=== PATIENT | female | born 1985 | race African-American/Black ===

== ENCOUNTER 2018-08-09 09:45 | Emergency (ER) | payer OTHER ==
[~2018-08-09] VITALS: Ht 175.3 cm; Wt 112.5 kg
[~2018-08-09 09:45] MED LIST: IBUP-1060 PO; PRED50TA PO
[2018-08-09 12:07] LABS: BILIRUBIN,URINE NEGATIVE (NEG); CLARITY,URINE CLEAR; COLOR,URINE YELLOW; NITRITE,URINE NEGATIVE (NEG); PH,URINE 5.5; PROTEIN,URINE NEGATIVE (NEG-TRACE); UROBILINOGEN,URINE 0.2 mg/dL (0.2 mg/dL)
[2018-08-09 12:12] LABS: SQUAMOUS EPITHELIAL CELL,UR MOD /LPF
[2018-08-09 12:13] LABS: BACTERIA,URINE FEW /HPF (0-FEW); RBC,URINE 0 /HPF (0-2)
[2018-08-09] MEDS: DICYCLOMINE HCL 10 MG CAPSULE PO ONE (12:24)
[2018-08-09] MEDS: IV NORMAL SALINE 1000ML BAG 1,000 ML IV ONE (12:24)
[2018-08-09] MEDS: FAMOTIDINE 20 MG/2 ML VIAL IVP ONE (12:24)
[2018-08-09] MEDS: ONDANSETRON PF 4 MG/2 ML VIAL. IV ONE (12:24)
[2018-08-09 12:29] LABS: BASO % 1 % (0-3); EOS # 0.1 x10^3/uL (0.0-0.7); EOS % 3 % (0-3); HEMATOCRIT 39.3 % (36.0-47.0); HEMOGLOBIN 13.3 g/dL (12.0-15.5); LYMPH # 1.4 x10^3/uL (1.0-4.8); LYMPH % 30 % (24-48); MEAN CORPUSCULAR HEMOGLOBIN 28 pg (25-35); MEAN CORPUSCULAR HGB CONC 34 g/dL (31-37); MEAN CORPUSCULAR VOLUME 82 fL (79-100); MONO # 0.4 x10^3/uL (0.0-1.1); MONO % 8 % (0-9); NEUT # 2.7 x10^3uL (1.8-7.7); NEUT % 59 % (31-73); PLATELET COUNT 239 x10^3/uL (140-400); RED BLOOD COUNT 4.82 x10^6/uL (3.50-5.40); RED CELL DISTRIBUTION WIDTH 13.9 % (11.5-14.5); WHITE BLOOD COUNT 4.5 x10^3/uL (4.0-11.0)
[2018-08-09 12:39] LABS: CALCIUM 9.1 mg/dL (8.5-10.1); CREATININE 0.7 mg/dL (0.6-1.0); GFR 117.3; POTASSIUM 3.8 mmol/L (3.5-5.1)
[2018-08-09 12:46] LABS: ALBUMIN 3.6 g/dL (3.4-5.0); TOTAL BILIRUBIN 0.5 mg/dL (0.2-1.0); TOTAL PROTEIN 7.3 g/dL (6.4-8.2)
[2018-08-09 12:58] LABS: INFLUENZA A PATIENT NEGATIVE (NEGATIVE); INFLUENZA B PATIENT NEGATIVE (NEGATIVE)
[2018-08-09] MEDS ORDERED: DICY20TA3 PO (14:06)
[2018-08-09] MEDS ORDERED: ONDA4TAB7 PO (14:06)
--- NOTE | 2018-08-09 14:06 | PHYS DOC ---
Past Medical History Past Medical History: No Pertinent History Past Surgical History: , Tubal ligation Additional Past Surgical Histo: lumpectomy Alcohol Use: None Drug Use: None Adult General Chief Complaint Chief Complaint: NAUSEA/VOMITING/DIARRHA HPI HPI Patient is a 33 year old female with no significant medical history who presents today with nausea, vomiting, diarrhea, generalized abdominal pain described as mild and intermittent, and a fever intermittently for 3 days. Patient denies any chance she is . She states her tubes are tied. Denies any hematemesis or melena. Review of Systems Review of Systems Constitutional: Denies fever or chills [] Eyes: Denies change in visual acuity, redness, or eye pain [] HENT: Denies nasal congestion or sore throat [] Respiratory: Denies cough or shortness of breath [] Cardiovascular: No additional information not addressed in HPI [] GI: Reports abdominal pain, nausea, vomiting, diarrhea : Denies dysuria or hematuria [] Musculoskeletal: Denies back pain or joint pain [] Integument: Denies rash or skin lesions [] Neurologic: Denies headache, focal weakness or sensory changes [] All other systems were reviewed and found to be within normal limits, except as documented in this note. Current Medications Current Medications Current Medications Medications (Trade) Dose Ordered Sig/Liv Start Time Stop Time Status Last Admin Dose Admin Dicyclomine HCl (Bentyl) 20 mg 1X ONCE 08/09/18 12:00 08/09/18 12:01 DC 08/09/18 12:24 20 MG Famotidine (Pepcid Vial) 20 mg 1X ONCE 08/09/18 12:00 08/09/18 12:01 DC 08/09/18 12:24 20 MG Ondansetron HCl (Zofran) 4 mg 1X ONCE 08/09/18 12:00 08/09/18 12:01 DC 08/09/18 12:24 4 MG Sodium Chloride 1,000 ml @ 1,000 mls/hr 1X ONCE 08/09/18 12:00 08/09/18 12:59 DC 08/09/18 12:24 1,000 MLS/HR Allergies Allergies Allergies Coded Allergies Type Severity Reaction Last Updated Verified No Known Drug Allergies 07/17/13 No Physical Exam Physical Exam Constitutional: Well developed, well nourished, no acute distress, non-toxic appearance. [] HENT: Normocephalic, atraumatic, bilateral external ears normal, oropharynx moist, no oral exudates, nose normal. [] Eyes: PERRLA, EOMI, conjunctiva normal, no discharge. [] Neck: Normal range of motion, no tenderness, supple, no stridor. [] Cardiovascular:Heart rate regular rhythm, no murmur [] Lungs & Thorax: Bilateral breath sounds clear to auscultation [] Abdomen: Rounded abdomen. Bowel sounds normal, soft, no tenderness, no masses, no pulsatile masses. [] Skin: Warm, dry, no erythema, no rash. [] Back: No tenderness, no CVA tenderness. [] Extremities: No tenderness, no cyanosis, no clubbing, ROM intact, no edema. [] Neurologic: Alert and oriented X 3, normal motor function, normal sensory function, no focal deficits noted. [] Psychologic: Affect normal, judgement normal, mood normal. [] Current Patient Data Vital Signs Vital Signs Date Time Temp Pulse Resp B/P (MAP) Pulse Ox O2 Delivery O2 Flow Rate FiO2 08/09/18 09:50 98.1 86 16 125/67 (86) 97 Room Air 98.1 Lab Values Laboratory Tests Test 08/09/18 10:17 08/09/18 11:46 08/09/18 12:10 08/09/18 12:25 Urine Collection Type Unknown Urine Color Yellow Urine Clarity Clear Urine pH 5.5 Urine Specific [place] 1.025 Urine Protein Negative mg/dL (NEG-TRACE) Urine Glucose (UA) Negative mg/dL (NEG) Urine Ketones (Stick) Negative mg/dL (NEG) Urine Blood Negative (NEG) Urine Nitrite Negative (NEG) Urine Bilirubin Negative (NEG) Urine Urobilinogen Dipstick 0.2 mg/dL (0.2 mg/dL) Urine Leukocyte Esterase Negative (NEG) Urine RBC 0 /HPF (0-2) Urine WBC 1-4 /HPF (0-4) Urine Squamous Epithelial Cells Mod /LPF Urine Bacteria Few /HPF (0-FEW) Urine Mucus Marked /LPF POC Urine HCG, Qualitative Hcg negative (Negative) White Blood Count 4.5 x10^3/uL (4.0-11.0) Red Blood Count 4.82 x10^6/uL (3.50-5.40) Hemoglobin 13.3 g/dL (12.0-15.5) Hematocrit 39.3 % (36.0-47.0) Mean Corpuscular Volume 82 fL (79-100) Mean Corpuscular Hemoglobin 28 pg (25-35) Mean Corpuscular Hemoglobin Concent 34 g/dL (31-37) Red Cell Distribution Width 13.9 % (11.5-14.5) Platelet Count 239 x10^3/uL (140-400) Neutrophils (%) (Auto) 59 % (31-73) Lymphocytes (%) (Auto) 30 % (24-48) Monocytes (%) (Auto) 8 % (0-9) Eosinophils (%) (Auto) 3 % (0-3) Basophils (%) (Auto) 1 % (0-3) Neutrophils # (Auto) 2.7 x10^3uL (1.8-7.7) Lymphocytes # (Auto) 1.4 x10^3/uL (1.0-4.8) Monocytes # (Auto) 0.4 x10^3/uL (0.0-1.1) Eosinophils # (Auto) 0.1 x10^3/uL (0.0-0.7) Basophils # (Auto) 0.0 x10^3/uL (0.0-0.2) Sodium Level 138 mmol/L (136-145) Potassium Level 3.8 mmol/L (3.5-5.1) Chloride Level 103 mmol/L (98-107) Carbon Dioxide Level 28 mmol/L (21-32) Anion Gap 7 (6-14) Blood Urea Nitrogen 10 mg/dL (7-20) Creatinine 0.7 mg/dL (0.6-1.0) Estimated GFR (Cockcroft-Gault) 117.3 BUN/Creatinine Ratio 14 (6-20) Glucose Level 85 mg/dL (70-99) Calcium Level 9.1 mg/dL (8.5-10.1) Total Bilirubin 0.5 mg/dL (0.2-1.0) Aspartate Amino Transferase (AST) 25 U/L (15-37) Alanine Aminotransferase (ALT) 30 U/L (14-59) Alkaline Phosphatase 75 U/L (46-116) Total Protein 7.3 g/dL (6.4-8.2) Albumin 3.6 g/dL (3.4-5.0) Albumin/Globulin Ratio 1.0 (1.0-1.7) Influenza Type A Antigen Negative (NEGATIVE) Influenza Type B Antigen Negative (NEGATIVE) Laboratory Tests 08/09/18 12:10 Laboratory Tests 08/09/18 12:10 EKG EKG [] Radiology/Procedures Radiology/Procedures [] Course & Med Decision Making Course & Med Decision Making Pertinent Labs and Imaging studies reviewed. (See chart for details) This is a well-appearing 33-year-old female patient presented to the ED today with nausea, vomiting, diarrhea, generalized abdominal pain and fever for 3 days. Patient is afebrile in the ED. CBC with normal WBC, CMP would not acute findings, urine analysis is negative for infection. Negative for influenza A or B. Patient was given 1 L of IV fluid, Zofran, dicyclomine, with good relief of her symptoms. She is afebrile. She is in no distress. She was discharged to home with dicyclomine. Instructed to push fluids. Given prescription for Zofran as well. Tylenol Motrin for pain or fever. Follow-up with GI in the next 7 days if symptoms persist. Dragon Disclaimer Dragon Disclaimer This electronic medical record was generated, in whole or in part, using a voice recognition dictation system. Departure Departure Impression: Primary Impression: Pain, abdominal, generalized Additional Impressions: Nausea and vomiting Diarrhea Fever Disposition: HOME, SELF-CARE Condition: STABLE Referrals: ALLISON KUO MD (PCP) Follow up in 1 week VIVIANA HILL MD Follow up in 1 week Patient Instructions: Abdominal Pain, Diarrhea, [id number], Fever, Adult, [id number], Nausea and Vomiting, [id number] Additional Instructions: You were evaluated emergency room for nausea, vomiting, diarrhea, abdominal pain and fever. Your work up in the emergency room was negative for any acute findings. We recommend you push fluids. Maintain good hand hygiene. Take the prescribed medications as ordered. Please take Tylenol or Motrin for pain or fever. Follow-up with the primary care doctor or the provided GI specialist in the next 7 days if symptoms persist. Come back to the ED at any point symptoms worsen. Scripts Ondansetron Hcl (ZOFRAN) 4 Mg Tablet 1 TAB PO Q8HRS, #30 TAB Prov: ALFREDO STRICKLAND CAILIN 08/09/18 Dicyclomine Hcl (DICYCLOMINE HCL) 20 Mg Tablet 1 TAB PO TID, #30 TAB 1 Refill Prov: ALFREDO STRICKLAND CAILIN 08/09/18 Problem Qualifiers Additional Impressions: Nausea and vomiting Vomiting type: unspecified Vomiting Intractability: non-intractable Qualified Codes: R11.2 - Nausea with vomiting, unspecified Diarrhea Diarrhea type: unspecified type Qualified Codes: R19.7 - Diarrhea, unspecified Fever Fever type: unspecified Qualified Codes: R50.9 - Fever, unspecified ALFREDO STRICKLAND CAILIN Aug 09, 2018 14:06
[2018-08-09 14:25] VITALS: BP 135/58
== END 2018-08-09 14:25 | disposition home or self-care (01) ==
LOC: ER 09:45
DX: R11.2 Nausea with vomiting, unspecified (principal); R19.7 Diarrhea, unspecified; R50.9 Fever, unspecified; R10.84 Generalized abdominal pain; Z98.890 Other specified postprocedural states; Z98.51 Tubal ligation status
CPT/HCPCS: 36415; 80053; 81001; 81025; 85025; 87804; 96361; 96374; 96375; 99283; J2405; J3490; J7030

== ENCOUNTER 2019-08-29 14:26 | Emergency (ER) | payer OTHER ==
[~2019-08-29 14:26] MED LIST changes: +DICY20TA3 PO; +ONDA4TAB7 PO
== END 2019-08-29 15:40 | disposition left against medical advice (07) ==
LOC: ER 14:26
DX: R51 Headache (principal); R11.10 Vomiting, unspecified; M79.10 Myalgia, unspecified site; R68.83 Chills (without fever); Z53.21 Procedure and treatment not carried out due to patient leaving prior to being seen by health care provider

== ENCOUNTER 2021-01-14 02:01 | Emergency (ER) | payer SELFPAY ==
[~2021-01-14] VITALS: Ht 172.7 cm; Wt 112.7 kg
--- NOTE | 2021-01-14 03:28 | ED.ADGEN ---
Past Medical History Past Medical History: No Pertinent History Past Surgical History: , Tubal ligation Additional Past Surgical Histo: lumpectomy Smoking Status: Never Smoker Alcohol Use: None Drug Use: None General Adult EDM: Chief Complaint: FLANK PAIN HPI: HPI: Patient is a 35 year old female coming in for left-sided flank pain worsening over the past 4 days. Patient also has had subjective fever and chills, burning with urination. Denies any history of kidney stones or kidney infections. No medical history or medication allergies. Review of Systems: Review of Systems: All other systems within normal limits except for as noted in the HPI Current Medications: Current Medications Medications (Trade) Dose Ordered Sig/Liv Start Time Stop Time Status Last Admin Dose Admin Acetaminophen (Tylenol) 1,000 mg 1X ONCE 01/14/21 03:30 01/14/21 03:31 DC 01/14/21 03:57 1,000 MG Ceftriaxone Sodium (Rocephin) 1 gm 1X ONCE 01/14/21 05:00 01/14/21 05:01 DC Fentanyl Citrate (Fentanyl 2ml Vial) 75 mcg 1X ONCE 01/14/21 03:30 01/14/21 03:31 DC 01/14/21 03:57 75 MCG Ondansetron HCl (Zofran) 4 mg 1X ONCE 01/14/21 03:30 01/14/21 03:31 DC 01/14/21 03:57 4 MG Sodium Chloride 1,000 ml @ 1,000 mls/hr 1X ONCE 01/14/21 03:30 01/14/21 04:29 DC 01/14/21 03:56 1,000 MLS/HR Allergies: Allergies: Allergies Coded Allergies Type Severity Reaction Last Updated Verified No Known Drug Allergies 07/17/13 No Physical Exam: PE: Constitutional: Well developed, well nourished, no acute distress, non-toxic appearance. [] HENT: Normocephalic, atraumatic, bilateral external ears normal, nose normal. [] Eyes: PERRLA, conjunctiva normal, no discharge. [] Neck: No rigidity, supple, no stridor. [] Cardiovascular: Regular rate and rhythm, brisk cap refill [] Lungs & Thorax: Non labored symmetric respirations, no tachypnea or respiratory distress [] Abdomen: Soft, nondistended. Skin: Warm, dry, no erythema, no rash. [] Back: Unremarkable Extremities: No deformities, range of motion grossly intact, no lower extremity edema [] Neurologic: Alert and oriented X 3, no focal deficits noted. [] Psychologic: Affect normal, judgement normal, mood normal. [] Current Patient Data: Labs: Laboratory Tests Test 01/14/21 02:10 01/14/21 02:18 01/14/21 04:00 Urine Collection Type Unknown Urine Color [place] Urine Clarity Cloudy Urine pH 6.5 (<5.0-8.0) Urine Specific [place] 1.015 (1.000-1.030) Urine Protein 30 mg/dL (NEG-TRACE) Urine Glucose (UA) Negative mg/dL (NEG) Urine Ketones (Stick) Negative mg/dL (NEG) Urine Blood Large (NEG) Urine Nitrite Positive (NEG) Urine Bilirubin Negative (NEG) Urine Urobilinogen Dipstick 1.0 mg/dL (0.2 mg/dL) Urine Leukocyte Esterase Large (NEG) Urine RBC Occ /HPF (0-2) Urine WBC Tntc /HPF (0-4) Urine Squamous Epithelial Cells Many /LPF Urine Bacteria Many /HPF (0-FEW) Urine Mucus Marked /LPF POC Urine HCG, Qualitative Hcg negative (Negative) White Blood Count 6.9 x10^3/uL (4.0-11.0) Red Blood Count 4.43 x10^6/uL (3.50-5.40) Hemoglobin 11.4 g/dL (12.0-15.5) L Hematocrit 35.2 % (36.0-47.0) L Mean Corpuscular Volume 80 fL (79-100) Mean Corpuscular Hemoglobin 26 pg (25-35) Mean Corpuscular Hemoglobin Concent 32 g/dL (31-37) Red Cell Distribution Width 14.7 % (11.5-14.5) H Platelet Count 232 x10^3/uL (140-400) Neutrophils (%) (Auto) 88 % (31-73) H Lymphocytes (%) (Auto) 9 % (24-48) L Monocytes (%) (Auto) 2 % (0-9) Eosinophils (%) (Auto) 1 % (0-3) Basophils (%) (Auto) 0 % (0-3) Neutrophils # (Auto) 6.1 x10^3/uL (1.8-7.7) Lymphocytes # (Auto) 0.6 x10^3/uL (1.0-4.8) L Monocytes # (Auto) 0.1 x10^3/uL (0.0-1.1) Eosinophils # (Auto) 0.1 x10^3/uL (0.0-0.7) Basophils # (Auto) 0.0 x10^3/uL (0.0-0.2) Platelet Estimate Pending Sodium Level 141 mmol/L (136-145) Potassium Level 3.9 mmol/L (3.5-5.1) Chloride Level 107 mmol/L (98-107) Carbon Dioxide Level 27 mmol/L (21-32) Anion Gap 7 (6-14) Blood Urea Nitrogen 10 mg/dL (7-20) Creatinine 0.9 mg/dL (0.6-1.0) Estimated GFR (Cockcroft-Gault) 86.7 BUN/Creatinine Ratio 11 (6-20) Glucose Level 110 mg/dL (70-99) H Lactic Acid Level 2.2 mmol/L (0.4-2.0) H Calcium Level 8.4 mg/dL (8.5-10.1) L Total Bilirubin 0.5 mg/dL (0.2-1.0) Aspartate Amino Transferase (AST) 10 U/L (15-37) L Alanine Aminotransferase (ALT) 14 U/L (14-59) Alkaline Phosphatase 79 U/L (46-116) Total Protein 7.3 g/dL (6.4-8.2) Albumin 3.6 g/dL (3.4-5.0) Albumin/Globulin Ratio 1.0 (1.0-1.7) Laboratory Tests 01/14/21 04:00 Laboratory Tests 01/14/21 04:00 Vital Signs: Vital Signs Date Time Temp Pulse Resp B/P (MAP) Pulse Ox O2 Delivery O2 Flow Rate FiO2 01/14/21 04:02 103.3 108 26 129/58 (81) 97 Room Air 103.3 EKG: EKG: [] Heart Score: C/O Chest Pain: No Risk Factors: Risk Factors: DM, Current or recent (<one month) smoker, HTN, HLP, family history of CAD, obesity. Risk Scores: Score 0 - 3: 2.5% MACE over next 6 weeks - Discharge Home Score 4 - 6: 20.3% MACE over next 6 weeks - Admit for Clinical Observation Score 7 - 10: 72.7% MACE over next 6 weeks - Early Invasive Strategies Radiology/Procedures: Radiology/Procedures: [] Course & Med Decision Making: Course & Med Decision Making Discussed option of inpatient admission for IV antibiotics versus p.o. antibiotics at home with return precautions. Patient states she would rather try staying at home with antibiotics antipyretics, and pain medications Dragon Disclaimer: Dragkarlene Disclaimer: This electronic medical record was generated, in whole or in part, using a voice recognition dictation system. Departure Departure Impression: Primary Impression: Pyelonephritis Disposition: HOME / SELF CARE / HOMELESS Condition: STABLE Referrals: ALLISON KUO MD (PCP) Patient Instructions: Pyelonephritis, Adult Scripts Cephalexin (CEPHALEXIN) 500 Mg Capsule 2 CAP PO BID for antibiotic for 10 Days, #40 CAP Prov: EMILIA ESPAÑA MD 01/14/21 Hydrocodone Bit/Acetaminophen (HYDROCODONE-APAP 7.5-325 ) 1 Tab Tablet 1 TAB PO PRN Q6HRS PRN for PAIN for 3 Days, #15 TAB 0 Refills Prov: EMILIA ESPAÑA MD 01/14/21 Ibuprofen (IBUPROFEN) 800 Mg Tablet 800 MG PO PRN Q8HRS PRN for fever for 10 Days, #20 TAB Prov: EMILIA ESPAÑA MD 01/14/21 Ondansetron (ONDANSETRON ODT) 4 Mg Tab.rapdis 1 TAB PO PRN Q6-8HRS PRN for NAUSEA, #16 TAB Prov: EMILIA ESPAÑA MD 01/14/21 EMILIA ESPAÑA MD Jan 14, 2021 03:28
[2021-01-14] MEDS ORDERED: ONDANSETRON PF 4 MG/2 ML VIAL. IVP ONE (03:30)
[2021-01-14] MEDS ORDERED: IV NORMAL SALINE 1000ML BAG 1,000 ML IV ONE (03:30)
[2021-01-14] MEDS ORDERED: ACETAMINOPHEN 500 MG TABLET PO ONE (03:30)
[2021-01-14] MEDS ORDERED: fentaNYL PF VIAL 100 MCG/2 ML VIAL IVP ONE (03:30)
[2021-01-14 03:46] LABS: BILIRUBIN,URINE NEGATIVE (NEG); CLARITY,URINE CLOUDY; COLOR,URINE ORANGE; NITRITE,URINE POSITIVE (NEG); PH,URINE 6.5 (<5.0-8.0); PROTEIN,URINE 30 mg/dL (NEG-TRACE)
[2021-01-14 03:57] LABS: BACTERIA,URINE MANY /HPF (0-FEW); RBC,URINE OCC /HPF (0-2); WBC,URINE TNTC /HPF (0-4)
[2021-01-14 04:13] LABS: BASO % 0 % (0-3); EOS # 0.1 x10^3/uL (0.0-0.7); EOS % 1 % (0-3); HEMATOCRIT 35.2 % (36.0-47.0); HEMOGLOBIN 11.4 g/dL (12.0-15.5); LYMPH # 0.6 x10^3/uL (1.0-4.8); LYMPH % 9 % (24-48); MEAN CORPUSCULAR HEMOGLOBIN 26 pg (25-35); MEAN CORPUSCULAR HGB CONC 32 g/dL (31-37); MEAN CORPUSCULAR VOLUME 80 fL (79-100); MONO # 0.1 x10^3/uL (0.0-1.1); MONO % 2 % (0-9); NEUT # 6.1 x10^3/uL (1.8-7.7); NEUT % 88 % (31-73); PLATELET COUNT 232 x10^3/uL (140-400); RED BLOOD COUNT 4.43 x10^6/uL (3.50-5.40); RED CELL DISTRIBUTION WIDTH 14.7 % (11.5-14.5); WHITE BLOOD COUNT 6.9 x10^3/uL (4.0-11.0)
[2021-01-14 04:19] LABS: CALCIUM 8.4 mg/dL (8.5-10.1); CREATININE 0.9 mg/dL (0.6-1.0); GFR 86.7; POTASSIUM 3.9 mmol/L (3.5-5.1)
[2021-01-14 04:25] LABS: ALBUMIN 3.6 g/dL (3.4-5.0); TOTAL BILIRUBIN 0.5 mg/dL (0.2-1.0); TOTAL PROTEIN 7.3 g/dL (6.4-8.2)
[2021-01-14] MEDS ORDERED: cefTRIAXone IV Push 1 GM VIAL. IVP ONE (05:00)
[2021-01-14] MEDS ORDERED: IBUP-1060 PO (05:08)
[2021-01-14] MEDS ORDERED: CEPH500C PO (05:08)
[2021-01-14] MEDS ORDERED: HYDR-2765 PO (05:08)
[2021-01-14] MEDS ORDERED: ONDA4TAB12 PO (05:08)
[2021-01-14 05:30] VITALS: BP 125/62
[2021-01-14 07:16] LABS: % BANDS 1 % (0-9); % EOS 2 % (0-5); % LYMPHS 22 % (24-48); % SEGS 75 % (35-66); PLT ESTIMATE ADEQUATE (ADEQUATE)
== END 2021-01-14 05:33 | disposition home or self-care (01) ==
LOC: ER 02:01
DX: N12 Tubulo-interstitial nephritis, not specified as acute or chronic (principal); Z98.890 Other specified postprocedural states; Z98.51 Tubal ligation status
CPT/HCPCS: 36415; 80053; 81001; 81025; 83605; 85007; 85025; 87086; 96361; 96374; 96375; 99284; J0696; J2405; J3010; J7030

== ENCOUNTER 2021-03-09 11:10 | Emergency (ER) | payer SELFPAY ==
[~2021-03-09] VITALS: Ht 172.7 cm; Wt 110.0 kg
[~2021-03-09 11:10] MED LIST changes: +CEPH500C PO; +HYDR-2765 PO; +ONDA4TAB12 PO
[2021-03-09] MEDS ORDERED: ACETAMINOPHEN 325 MG TABLET. PO ONE (11:45)
[2021-03-09] MEDS ORDERED: IV NORMAL SALINE 1000ML BAG 1,000 ML IV ONE ×2 (11:45→12:30)
[2021-03-09 11:55] LABS: BASO % 1 % (0-3); EOS % 0 % (0-3); HEMATOCRIT 35.7 % (36.0-47.0); HEMOGLOBIN 11.6 g/dL (12.0-15.5); LYMPH # 1.3 x10^3/uL (1.0-4.8); LYMPH % 23 % (24-48); MEAN CORPUSCULAR HEMOGLOBIN 26 pg (25-35); MEAN CORPUSCULAR HGB CONC 33 g/dL (31-37); MEAN CORPUSCULAR VOLUME 79 fL (79-100); MONO # 0.1 x10^3/uL (0.0-1.1); MONO % 1 % (0-9); NEUT # 4.2 x10^3/uL (1.8-7.7); NEUT % 75 % (31-73); PLATELET COUNT 229 x10^3/uL (140-400); RED BLOOD COUNT 4.53 x10^6/uL (3.50-5.40); RED CELL DISTRIBUTION WIDTH 14.2 % (11.5-14.5); WHITE BLOOD COUNT 5.6 x10^3/uL (4.0-11.0)
[2021-03-09 11:57] LABS: BILIRUBIN,URINE NEGATIVE (NEG); CLARITY,URINE CLOUDY; COLOR,URINE YELLOW; NITRITE,URINE NEGATIVE (NEG); PROTEIN,URINE 30 mg/dL (NEG-TRACE); UROBILINOGEN,URINE 0.2 mg/dL (0.2 mg/dL)
[2021-03-09 12:24] LABS: CALCIUM 8.6 mg/dL (8.5-10.1); CREATININE 0.9 mg/dL (0.6-1.0); GFR 86.7; POTASSIUM 4.3 mmol/L (3.5-5.1)
[2021-03-09 12:29] LABS: ALBUMIN 3.5 g/dL (3.4-5.0); ALBUMIN/GLOBULIN RATIO 0.8 (1.0-1.7); TOTAL BILIRUBIN 0.9 mg/dL (0.2-1.0); TOTAL PROTEIN 7.7 g/dL (6.4-8.2)
[2021-03-09] MEDS ORDERED: ONDANSETRON PF 4 MG/2 ML VIAL. IVP ONE (12:30)
[2021-03-09] MEDS ORDERED: cefTRIAXone IV Push 1 GM VIAL. IVP ONE (12:30)
--- NOTE | 2021-03-09 12:31 | PHYS DOC ---
Past Medical History Past Medical History: No Pertinent History Past Surgical History: , Tubal ligation Additional Past Surgical Histo: lumpectomy Smoking Status: Never Smoker Alcohol Use: Occasionally Drug Use: None General Adult EDM: Chief Complaint: FEVER HPI: HPI: 35-year-old -[place] female past medical history of pyelonephritis January 14, 2021, presents to the ED with complaints of right flank pain that radiates into the right lower abdomen with associated chills that started last night. Took 1 tablet of hydrocodone with some relief. Pain increased while watching a movie today and patient drove herself here. Has received her Cadigo vaccine. Just completed her menses. Is not prescribed any routine medications. States this feels similar to her kidney infection in December of this year. Reports associated increased urinary frequency. Reports her blood pressure is not normally this high. Review of Systems: Review of Systems: Constitutional: Denies fever or confusion Eyes: Denies change in visual acuity. [] HENT: Denies nasal congestion or sore throat. [] Respiratory: Denies cough or shortness of breath. [] Cardiovascular: Denies chest pain or edema. [] GI: Denies nausea, vomiting, bloody stools or diarrhea. [] : Denies dysuria or hematuria Musculoskeletal: Denies midline back pain or joint pain. [] Integument: Denies rash or desquamation Neurologic: Denies headache, focal weakness or sensory changes. [] Endocrine: Denies polyuria or polydipsia. [] Lymphatic: Denies swollen glands. [] Psychiatric: Denies depression or anxiety. [] Heart Score: C/O Chest Pain: No Risk Factors: Risk Factors: DM, Current or recent (<one month) smoker, HTN, HLP, family history of CAD, obesity. Risk Scores: Score 0 - 3: 2.5% MACE over next 6 weeks - Discharge Home Score 4 - 6: 20.3% MACE over next 6 weeks - Admit for Clinical Observation Score 7 - 10: 72.7% MACE over next 6 weeks - Early Invasive Strategies Current Medications: Current Medications Medications (Trade) Dose Ordered Sig/Liv Start Time Stop Time Status Last Admin Dose Admin Acetaminophen (Tylenol) 650 mg 1X ONCE 03/09/21 11:45 03/09/21 11:46 DC 03/09/21 11:48 650 MG Sodium Chloride 1,000 ml @ 1,000 mls/hr 1X ONCE 03/09/21 11:45 03/09/21 12:44 03/09/21 11:53 1,000 MLS/HR Allergies: Allergies: Allergies Coded Allergies Type Severity Reaction Last Updated Verified No Known Drug Allergies 07/17/13 No Physical Exam: PE: Constitutional: flu-appearing, obese, febrile HENT: Normocephalic, atraumatic, moist mucous membranes Eyes: EOMI, conjunctiva normal, no discharge. Neck: Normal range of motion, supple, Cardiovascular: S1/2 present, tachycardic Lungs & Thorax: Speaking in full sentences, bilateral equal chest rise, no tachypnea or increased work of breathing Abdomen: soft, no tenderness, Skin: Warm, dry, no erythema, no rash. [] Back: No midline tenderness, right CVA tenderness. [] Extremities: No tenderness, no cyanosis, Neurologic: Alert and oriented X 3, normal motor function, normal sensory function, no focal deficits noted. [] Psychologic: Affect normal, judgement normal, mood normal. [] Current Patient Data: Labs: Laboratory Tests Test 03/09/21 11:19 03/09/21 11:28 POC Urine HCG, Qualitative Hcg negative (Negative) White Blood Count 5.6 x10^3/uL (4.0-11.0) Red Blood Count 4.53 x10^6/uL (3.50-5.40) Hemoglobin 11.6 g/dL (12.0-15.5) L Hematocrit 35.7 % (36.0-47.0) L Mean Corpuscular Volume 79 fL (79-100) Mean Corpuscular Hemoglobin 26 pg (25-35) Mean Corpuscular Hemoglobin Concent 33 g/dL (31-37) Red Cell Distribution Width 14.2 % (11.5-14.5) Platelet Count 229 x10^3/uL (140-400) Neutrophils (%) (Auto) 75 % (31-73) H Lymphocytes (%) (Auto) 23 % (24-48) L Monocytes (%) (Auto) 1 % (0-9) Eosinophils (%) (Auto) 0 % (0-3) Basophils (%) (Auto) 1 % (0-3) Neutrophils # (Auto) 4.2 x10^3/uL (1.8-7.7) Lymphocytes # (Auto) 1.3 x10^3/uL (1.0-4.8) Monocytes # (Auto) 0.1 x10^3/uL (0.0-1.1) Eosinophils # (Auto) 0.0 x10^3/uL (0.0-0.7) Basophils # (Auto) 0.0 x10^3/uL (0.0-0.2) Laboratory Tests 03/09/21 11:28 Vital Signs: Vital Signs Date Time Temp Pulse Resp B/P (MAP) Pulse Ox O2 Delivery O2 Flow Rate FiO2 03/09/21 11:26 103.0 108 22 181/93 100 Room Air 103.0 EKG: EKG: [] Radiology/Procedures: Radiology/Procedures: []IMAGING REPORT Signed PATIENT: FIDEL ROY MACCOUNT: [id number] : 1985 LOCATION: ER AGE: 35 SEX: F EXAM STATUS: REG ER ORD. PHYSICIAN: BETTIE CRUZ DO REASON: right flank pain PROCEDURE: CT ABDOMEN PELVIS WO CONTRAST EXAMINATION: CT ABDOMEN+PELVIS WO CLINICAL HISTORY: Right flank pain TECHNIQUE: Imaging of the abdomen and pelvis was performed without intravenous contrast using standard technique, scanning from just above the dome of the diaphragm to the symphysis pubis. Unenhanced imaging is limited for the evaluation of some intra-abdominal and pelvic pathology. CT Dose Reduction Employed: One or more of the following individualized dose reduction techniques were utilized for this examination: 1. Automated exposure control 2. Adjustment of the mA and/or kV according to patient size 3. Use of iterative reconstruction technique. COMPARISON: 03/13/2015 FINDINGS: Increased heterogeneous calcification in the 1.1 cm right basilar nodule, previously 1.0 cm and likely represents an old granuloma. Liver, gallbladder, pancreas, spleen, adrenal glands, and kidneys unremarkable. Minimally filled urinary bladder suboptimally evaluated. Uterus and ovaries unremarkable. Minimal free fluid in the pelvis, possibly physiologic. No dilated bowel. Slightly prominent appendix, similar to prior study. No abdominal aortic or iliac artery aneurysm. L4 vertebral hemangioma. IMPRESSION: No evidence of acute abdominopelvic abnormality on limited noncontrast exam. No urolithiasis or evidence of obstructive uropathy. Electronically signed by: Jamari Quezada DO (03/09/2021 12:40 PM) [id number] DICTATED and SIGNED BY: JAMARI QUEZADA DO DATE: 03/09/21 [id number] IMAGING REPORT Signed PATIENT: FIDEL ROY MACCOUNT: [id number] : 1985 LOCATION: ER AGE: 35 SEX: F EXAM STATUS: REG ER ORD. PHYSICIAN: BETTIE CRUZ DO REASON: nausea, flank pain PROCEDURE: CHEST AP ONLY XR CHEST 1V CLINICAL INDICATIONS: Reason: nausea, flank pain COMPARISON: April 17, 2016. Findings: No acute lung infiltrate or pleural effusion or pulmonary edema or lung mass or pneumothorax is seen. The heart size, pulmonary vasculature, mediastinum and both zonia are unremarkable. IMPRESSION: No acute radiographic abnormality is seen. Electronically signed by: Brenda Bardales MD (03/09/2021 12:53 PM) [id number] DICTATED and SIGNED BY: BRENDA BARDALES MD DATE: 03/09/21 [id number] Course & Med Decision Making: Course & Med Decision Making Pertinent Labs and Imaging studies reviewed. (See chart for details) Concern for pyelonephritis-pt met sepsis criteria on arrival, vitals normalized after IV fluids, antipyretics, antibiotics and analgesia. Will prescribe Vantin given cephalosporin to be on urine culture results in the EMR and Zofran as needed for nausea and vomiting /medication side effects. Also recommend [id number] antipyretics. Will discharge home with strict ED return precautions were given for persistent fever, intractable nausea vomiting, dehydration or worsening pain. Encouraged urgent outpatient follow-up with PMD for routine care and repeat urinalysis. Life-threatening processes were considered but are low suspicion at this time, given history, physical exam and ED workup. Pt was educated on all prescription medications and adverse effects. All patient's questions were answered and pt was stable at time of discharge. Life/limb-threatening differential includes but is not limited to, aortic dissection/aneurysm, cauda equina syndrome, transverse myelitis, spinal cord/epidural compression syndromes, discitis, spinal stenosis, epidural abscess or hematoma, osteomyelitis, disc herniation, surgical abdomen, stable or unstable fracture, renal/ureteral colic, sepsis, meningitis, musculoskeletal injury, traumatic injury, intraabdominal/retroperitoneal or pelvic bleeding. I have spoken with the patient and/or caregivers. I explained the patient's condition, diagnoses and treatment plan based on the information available to me at this time. I have answered the patient and/or caregiver's questions and addressed any concerns. The patient and/or caregivers have a good understanding of patient's diagnosis, condition and treatment plan as can be expected at this point. Vital signs have been stable. Patient's condition is stable and appropriate for discharge from the emergency department. Patient will pursue further outpatient evaluation with primary care physician or other designated or consulting physician as outlined in the discharge instructions. The patient and/or caregivers are agreeable to this plan of care and follow-up instructions have been explained in detail. The patient and/or caregivers have received these instructions in written form and have expressed an understanding of the discharge instructions. The patient and/or caregivers are aware that any significant change of condition or worsening of symptoms should prompt immediate return to this or the closest emergency department or call to [facility] Disclaimer: Felipa Disclaimer: This electronic medical record was generated, in whole or in part, using a voice recognition dictation system. Departure Departure Impression: Primary Impression: Pyelonephritis Disposition: 01 HOME / SELF CARE / HOMELESS Condition: STABLE Referrals: ALLISON KUO MD (PCP) Follow-up with your primary care physician in 24 to 48 hours OR FOLLOW UP WITH FAMILY MEDICINE: [address], [address] [place] [address] Patient Instructions: Pyelonephritis, Adult Additional Instructions: EMERGENCY DEPARTMENT GENERAL DISCHARGE INSTRUCTIONS Thank you for coming to [facility] Emergency Department (ED) today and trusting us with you care. We trust that you had a positive experience in our Emergency Department. If you wish to speak to the department management, you may call the Director at [phone]. YOUR FOLLOW UP INSTRUCTIONS ARE FOLLOWS: 1. Do you have a private Doctor? If you do not have a private doctor, please ask for a resource list of physicians or clinics that may be able to assist you with follow up care. 3. A lab test or culture has been done, your results will be reviewed and you will be notified if you need a change in treatment. ADDITIONAL INSTRUCTIONS AND INFORMATION: 1. Your care today has been supervised by a physician who is specially trained in emergency care. Many problems require more than one evaluation for a complete diagnosis and treatment. We recommend that you schedule your follow up appointment as recommended to ensure complete treatment of you illness or injury. If you are unable to obtain follow up care and continue to have a problem, or if your condition worsens, we recommend that you return to the ED. 2. We are not able to safely determine your condition over the phone nor are we able to give sound medical advice over the phone. For these safety reasons, if you call for medical advice we will ask you to come to the ED for further evaluation. 3. If you have any questions regarding these discharge instructions please call the ED at [phone]. SAFETY INFORMATION: In the interest of safety, wellness, and injury prevention; we encourage you to wear your sealbelt, if you smoke; quite smoking, and we encourage family to use a protective helmet for bicycling and other sporting events that present an increased risk for head injury. IF YOUR SYMPTOMS WORSEN OR NEW SYMPTOMS DEVELOP, OR YOU HAVE CONCERNS ABOUT YOUR CONDITION; OR IF YOUR CONDITION WORSENS WHILE YOU ARE WAITING FOR YOUR FOLLOW UP APPOINTMENT; EITHER CONTACT YOUR PRIMARY CARE DOCTOR, THE PHYSICIAN WHOSE NAME AND NUMBER YOU WERE GIVEN, OR RETURN TO THE ED IMMEDIATELY. Scripts Cefpodoxime Proxetil (CEFPODOXIME PROXETIL) 200 Mg Tablet 1 TAB PO BID for 10 Days, #20 TAB Prov: BETTIE CRUZ DO 03/09/21 Ondansetron (ONDANSETRON ODT) 4 Mg Tab.rapdis 1 TAB PO PRN Q6-8HRS, #20 TAB Prov: BETTIE CRUZ DO 03/09/21 BETTIE CRUZ DO Mar 09, 2021 12:31
[2021-03-09 12:39] LABS: BACTERIA,URINE MANY /HPF (0-FEW); WBC,URINE TNTC /HPF (0-4)
--- NOTE | 2021-03-09 12:43 | RAD ---
EXAMINATION: CT ABDOMEN+PELVIS WO CLINICAL HISTORY: Right flank pain TECHNIQUE: Imaging of the abdomen and pelvis was performed without intravenous contrast using standar d technique, scanning from just above the dome of the diaphragm to the symphysis pubis. Unenhanced i maging is limited for the evaluation of some intra-abdominal and pelvic pathology. CT Dose Reduction Employed: One or more of the following individualized dose reduction techniques wer e utilized for this examination: 1. Automated exposure control 2. Adjustment of the mA and/or kV ac cording to patient size 3. Use of iterative reconstruction technique. COMPARISON: 03/13/2015 FINDINGS: Increased heterogeneous calcification in the 1.1 cm right basilar nodule, previously 1.0 cm and likel y represents an old granuloma. Liver, gallbladder, pancreas, spleen, adrenal glands, and kidneys unremarkable. Minimally filled urinary bladder suboptimally evaluated. Uterus and ovaries unremarkable. Minimal alexey e fluid in the pelvis, possibly physiologic. No dilated bowel. Slightly prominent appendix, similar to prior study. No abdominal aortic or iliac artery aneurysm. L4 vertebral hemangioma. IMPRESSION: No evidence of acute abdominopelvic abnormality on limited noncontrast exam. No urolithiasis or evidence of obstructive uropathy. Electronically signed by: Jamari Sal DO (03/09/2021 12:40 PM) [id number]
[2021-03-09] MEDS ORDERED: HYDROmorphone 2 MG/ML VIAL IVP ONE (12:45)
--- NOTE | 2021-03-09 12:55 | RAD ---
XR CHEST 1V CLINICAL INDICATIONS: Reason: nausea, flank pain COMPARISON: April 17, 2016. Findings: No acute lung infiltrate or pleural effusion or pulmonary edema or lung mass or pneumothora x is seen. The heart size, pulmonary vasculature, mediastinum and both zonia are unremarkable. IMPRESSION: No acute radiographic abnormality is seen. Electronically signed by: Neo Bardales MD (03/09/2021 12:53 PM) [id number]
[2021-03-09] MEDS ORDERED: CEFP200T PO (14:51)
[2021-03-09] MEDS ORDERED: ONDA4TAB12 PO (14:51)
[2021-03-09 15:00] VITALS: BP 111/60
== END 2021-03-09 15:17 | disposition home or self-care (01) ==
LOC: ER 11:10
DX: N12 Tubulo-interstitial nephritis, not specified as acute or chronic (principal); Z20.822 Contact with and (suspected) exposure to COVID-19; Z98.51 Tubal ligation status
CPT/HCPCS: 36415; 71045; 74176; 80053; 81001; 81025; 83605; 83615; 85025; 87040; 87086; 87426; 96361; 96374; 96375; 99285; J0696; J1170; J2405; J7030; U0003; U0005

== ENCOUNTER 2021-03-10 20:20 | Emergency (ER) | payer SELFPAY ==
[~2021-03-10] VITALS: Ht 172.7 cm; Wt 109.1 kg
[~2021-03-10 20:20] MED LIST changes: +CEFP200T PO
[2021-03-10] MEDS ORDERED: ACETAMINOPHEN 500 MG TABLET PO ONE (23:45)
[2021-03-10] MEDS ORDERED: ONDANSETRON PF 4 MG/2 ML VIAL. IVP ONE (23:45)
[2021-03-10] MEDS ORDERED: IV NORMAL SALINE 1000ML BAG 1,000 ML IV ONE (23:45)
[2021-03-10] MEDS ORDERED: FAMOTIDINE 20 MG/2 ML VIAL IVP ONE (23:45)
[2021-03-10] MEDS ORDERED: KETOROLAC 15 MG/ML VIAL. IVP ONE (23:45)
[2021-03-10] MEDS ORDERED: cefTRIAXone IV Push 1 GM VIAL. IVP ONE (23:45)
[2021-03-10 23:59] LABS: BASO % 0 % (0-3); EOS % 1 % (0-3); HEMATOCRIT 35.5 % (36.0-47.0); HEMOGLOBIN 11.6 g/dL (12.0-15.5); LYMPH # 1.7 x10^3/uL (1.0-4.8); LYMPH % 21 % (24-48); MEAN CORPUSCULAR HEMOGLOBIN 26 pg (25-35); MEAN CORPUSCULAR HGB CONC 33 g/dL (31-37); MEAN CORPUSCULAR VOLUME 78 fL (79-100); MONO # 0.8 x10^3/uL (0.0-1.1); MONO % 9 % (0-9); NEUT # 5.6 x10^3/uL (1.8-7.7); NEUT % 69 % (31-73); PLATELET COUNT 266 x10^3/uL (140-400); RED BLOOD COUNT 4.53 x10^6/uL (3.50-5.40); RED CELL DISTRIBUTION WIDTH 14.1 % (11.5-14.5); WHITE BLOOD COUNT 8.2 x10^3/uL (4.0-11.0)
[2021-03-11 00:07] LABS: CREATININE 0.9 mg/dL (0.6-1.0); GFR 86.7
[2021-03-11 00:13] LABS: ALBUMIN 3.6 g/dL (3.4-5.0); ALBUMIN/GLOBULIN RATIO 0.8 (1.0-1.7); MAGNESIUM 2.1 mg/dL (1.8-2.4); TOTAL BILIRUBIN 0.5 mg/dL (0.2-1.0); TOTAL PROTEIN 8.2 g/dL (6.4-8.2)
[2021-03-11] MEDS ORDERED: PHENAZOPYRIDINE 200 MG TABLET. PO ONE (01:00)
[2021-03-11] MEDS ORDERED: PHEN-318 PO (01:01)
--- NOTE | 2021-03-11 01:02 | PHYS DOC ---
Past Medical History Past Medical History: No Pertinent History Additional Past Medical Histor: PYELONEPHRITIS Past Surgical History: , Tubal ligation Additional Past Surgical Histo: lumpectomy Smoking Status: Never Smoker Alcohol Use: None Drug Use: None General Adult EDM: Chief Complaint: MULTIPLE COMPLAINTS HPI: HPI: Patient is a 35 year old [f__sex] who presents with [] Review of Systems: Review of Systems: Constitutional: Denies fever or chills. [] Eyes: Denies change in visual acuity. [] HENT: Denies nasal congestion or sore throat. [] Respiratory: Denies cough or shortness of breath. [] Cardiovascular: Denies chest pain or edema. [] GI: Denies abdominal pain, nausea, vomiting, bloody stools or diarrhea. [] : Denies dysuria. [] Musculoskeletal: Denies back pain or joint pain. [] Integument: Denies rash. [] Neurologic: Denies headache, focal weakness or sensory changes. [] Endocrine: Denies polyuria or polydipsia. [] Lymphatic: Denies swollen glands. [] Psychiatric: Denies depression or anxiety. [] Heart Score: Risk Factors: Risk Factors: DM, Current or recent (<one month) smoker, HTN, HLP, family history of CAD, obesity. Risk Scores: Score 0 - 3: 2.5% MACE over next 6 weeks - Discharge Home Score 4 - 6: 20.3% MACE over next 6 weeks - Admit for Clinical Observation Score 7 - 10: 72.7% MACE over next 6 weeks - Early Invasive Strategies Current Medications: Current Medications Medications (Trade) Dose Ordered Sig/[facility] Start Time Stop Time Status Last Admin Dose Admin Acetaminophen (Tylenol) 500 mg 1X ONCE 03/10/21 23:45 03/10/21 23:46 DC 03/11/21 00:01 500 MG Ceftriaxone Sodium (Rocephin) 1 gm 1X ONCE 03/10/21 23:45 03/10/21 23:46 DC 03/11/21 00:02 1 GM Famotidine (Pepcid Vial) 20 mg 1X ONCE 03/10/21 23:45 03/10/21 23:46 DC 03/11/21 00:01 20 MG Ketorolac Tromethamine (Toradol 15mg Vial) 15 mg 1X ONCE 8/22/21 23:45 03/10/21 23:46 DC 03/11/21 00:01 15 MG Ondansetron HCl (Zofran) 4 mg 1X ONCE 03/10/21 23:45 03/10/21 23:46 DC 03/11/21 00:01 4 MG Phenazopyridine HCl (Pyridium) 200 mg 1X ONCE 03/11/21 01:00 03/11/21 01:01 UNV Sodium Chloride 1,000 ml @ 1,000 mls/hr 1X ONCE 03/10/21 23:45 03/11/21 00:44 DC 03/11/21 00:01 1,000 MLS/HR Allergies: Allergies: Allergies Coded Allergies Type Severity Reaction Last Updated Verified No Known Drug Allergies 07/17/13 No Physical Exam: PE: Constitutional: Well developed, well nourished, no acute distress, non-toxic appearance. [] HENT: Normocephalic, atraumatic, bilateral external ears normal, oropharynx moist, no oral exudates, nose normal. [] Eyes: PERRLA, EOMI, conjunctiva normal, no discharge. [] Neck: Normal range of motion, no tenderness, supple, no stridor. [] Cardiovascular:Heart rate regular rhythm, no murmur [] Lungs & Thorax: Bilateral breath sounds clear to auscultation [] Abdomen: Bowel sounds normal, soft, no tenderness, no masses, no pulsatile masses. [] Skin: Warm, dry, no erythema, no rash. [] Back: No tenderness, no CVA tenderness. [] Extremities: No tenderness, no cyanosis, no clubbing, ROM intact, no edema. [] Neurologic: Alert and oriented X 3, normal motor function, normal sensory funct ion, no focal deficits noted. [] Psychologic: Affect normal, judgement normal, mood normal. [] Current Patient Data: Labs: Laboratory Tests Test 03/10/21 23:30 03/10/21 23:51 POC Urine HCG, Qualitative Hcg negative (Negative) White Blood Count 8.2 x10^3/uL (4.0-11.0) Red Blood Count 4.53 x10^6/uL (3.50-5.40) Hemoglobin 11.6 g/dL (12.0-15.5) L Hematocrit 35.5 % (36.0-47.0) L Mean Corpuscular Volume 78 fL (79-100) L Mean Corpuscular Hemoglobin 26 pg (25-35) Mean Corpuscular Hemoglobin Concent 33 g/dL (31-37) Red Cell Distribution Width 14.1 % (11.5-14.5) Platelet Count 266 x10^3/uL (140-400) Neutrophils (%) (Auto) 69 % (31-73) Lymphocytes (%) (Auto) 21 % (24-48) L Monocytes (%) (Auto) 9 % (0-9) Eosinophils (%) (Auto) 1 % (0-3) Basophils (%) (Auto) 0 % (0-3) Neutrophils # (Auto) 5.6 x10^3/uL (1.8-7.7) Lymphocytes # (Auto) 1.7 x10^3/uL (1.0-4.8) Monocytes # (Auto) 0.8 x10^3/uL (0.0-1.1) Eosinophils # (Auto) 0.0 x10^3/uL (0.0-0.7) Basophils # (Auto) 0.0 x10^3/uL (0.0-0.2) Sodium Level 139 mmol/L (136-145) Potassium Level 4.0 mmol/L (3.5-5.1) Chloride Level 102 mmol/L (98-107) Carbon Dioxide Level 27 mmol/L (21-32) Anion Gap 10 (6-14) Blood Urea Nitrogen 7 mg/dL (7-20) Creatinine 0.9 mg/dL (0.6-1.0) Estimated GFR (Cockcroft-Gault) 86.7 BUN/Creatinine Ratio 8 (6-20) Glucose Level 88 mg/dL (70-99) Lactic Acid Level 1.0 mmol/L (0.4-2.0) Calcium Level 9.0 mg/dL (8.5-10.1) Magnesium Level 2.1 mg/dL (1.8-2.4) Total Bilirubin 0.5 mg/dL (0.2-1.0) Aspartate Amino Transferase (AST) 11 U/L (15-37) L Alanine Aminotransferase (ALT) 16 U/L (14-59) Alkaline Phosphatase 78 U/L (46-116) Total Protein 8.2 g/dL (6.4-8.2) Albumin 3.6 g/dL (3.4-5.0) Albumin/Globulin Ratio 0.8 (1.0-1.7) L Lipase 68 U/L (73-393) L Laboratory Tests 03/10/21 23:51 Laboratory Tests 03/10/21 23:51 Vital Signs: Vital Signs Date Time Temp Pulse Resp B/P (MAP) Pulse Ox O2 Delivery O2 Flow Rate FiO2 03/10/21 23:21 100.0 91 16 126/66 (77) 98 Room Air 100.0 EKG: EKG: [] Radiology/Procedures: Radiology/Procedures: [] Course & Med Decision Making: Course & Med Decision Making Pertinent Labs and Imaging studies reviewed. (See chart for details) [] Dragon Disclaimer: Dragon Disclaimer: This electronic medical record was generated, in whole or in part, using a voice recognition dictation system. Departure Departure Impression: Primary Impression: Pyelonephritis Disposition: HOME / SELF CARE / HOMELESS Condition: STABLE Referrals: ALLISON KUO MD (PCP) Patient Instructions: Fever, Adult, Ihuu-[id number], Pyelonephritis, Adult, Awti-lk-Jojo Additional Instructions: Increase fluid hydration. Continue previously prescribed antibiotics. 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
[2021-03-11 01:14] VITALS: BP 99/42
--- NOTE | 2021-03-11 10:20 | NUR ---
IP: Attempted to contact pt concerning covid results. No answer, left a voicemail to return the call.
--- NOTE | 2021-03-11 10:57 | NUR ---
IP: Pt returned my call. Informed pt of negative covid test. Pt verbalized understanding.
== END 2021-03-11 01:20 | disposition home or self-care (01) ==
LOC: ER 20:20
DX: N12 Tubulo-interstitial nephritis, not specified as acute or chronic (principal); R50.9 Fever, unspecified; R11.0 Nausea
CPT/HCPCS: 36415; 80053; 81025; 83605; 83690; 83735; 85025; 96361; 96374; 96375; 99285; J0696; J1885; J2405; J3490; J7030